=== PATIENT | female | born 1935 | race Caucasian/White ===

== ENCOUNTER 2020-05-03 00:35 | Observation (INO) ==
[2020-05-03] MEDS ORDERED: methylPREDNISolone 125 MG/2 ML VIAL ONE (00:51)
[2020-05-03] MEDS ORDERED: methylPREDNISolone 125 MG/2 ML VIAL IVP ONE (00:54)
[2020-05-03] MEDS ORDERED: Ipratropium/Albuterol Neb 3 ML IH ONE (00:54)
[2020-05-03] MEDS ORDERED: Albuterol 2.5 MG/3 ML NEBULIZER IH ONE (00:54)
[2020-05-03] MEDS ORDERED: Morphine Sulfate 2 MG/ML SYRINGE IVP ONE (00:56)
[2020-05-03 00:59] LABS: Basophils # 0.1 K/mcL (0.0-0.2); Basophils % 0.4 %; Eosinophils # 0.1 K/mcL (0.0-0.6); Eosinophils % 1.1 %; Hematocrit 37.5 % (35.3-44.9); Hemoglobin 11.5 g/dL (11.5-15.4); Immature Granulocytes % 0.6 % (0-4); Lymphocytes # 2.1 K/mcL (0.6-4.6); Lymphocytes % 17.5 %; Mean Corpuscular HGB Conc 30.7 g/dL (31.6-35.5); Mean Corpuscular Hemoglobin 27.8 pg (28.0-33.3); Mean Corpuscular Volume 90.6 fL (83.0-100.0); Mean Platelet Volume 10.5 fL (9.4-12.4); Monocytes # 0.8 K/mcL (0.0-1.3); Monocytes % 6.6 %; Neutrophils # 8.6 K/mcL (1.6-8.9); Platelet Count 262 K/mcL (140-400); Red Blood Count 4.14 M/mcL (3.82-4.97); Red Cell Distribution Width 17.1 % (11.5-14.5); Segmented Neutrophils % 73.8 %; White Blood Count 11.7 K/mcL (4.3-11.1)
[2020-05-03 01:02] LABS: INR 1.2; Prothrombin Time 13.7 Seconds (9.4-12.1)
[2020-05-03 01:03] LABS: ABG Base Excess -3 mEq/L (-2 to 3); ABG HCO3 24 mEq/L (21-27); ABG Oxygen Saturation 96 % (95-98); ABG PCO2 52 mmHg (35-45); ABG PH 7.28 pH Units (7.32-7.45); ABG PO2 91 mmHg (85-104); ABG TCO2 26 mEq/L (20-26)
[2020-05-03 01:13] LABS: BUN/Creatinine Ratio 25 (6-26); Blood Urea Nitrogen 22 mg/dL (8-23); Calcium 9.4 mg/dL (8.6-10.3); Carbon Dioxide 26 mEq/L (23-29); Chloride 99 mEq/L (98-107); Glucose 293 mg/dL (70-105); Osmolality,Calculated 300 (280-300); Potassium 4.1 mEq/L (3.5-5.1); Sodium 138 mEq/L (136-145); Troponin I < 0.03 ng/mL (< 0.04); eGFR For African Americans > 60 (> 60); eGFR For Non-African Americans > 60 (> 60)
[2020-05-03 01:28] LABS: VBG HCO3 29 mEq/L (21-27); VBG PCO2 59 mmHg (41-51); VBG PO2 36 mmHg (25-50)
[2020-05-03] MEDS ORDERED: Azithromycin 500 MG in 0.9 % Sodium Chloride 250 ML IVPB ONE (02:37)
[2020-05-03] MEDS ORDERED: Furosemide 40 MG/4 ML VIAL IVP ONE (02:41)
[2020-05-03] MEDS ORDERED: Naloxone 0.4 MG/ML INJ IVP PRN (02:57)
[2020-05-03 05:01] LABS: Bilirubin,Urine Negative (Negative); Blood,Urine Negative (Negative); Clarity,Urine Slightly Cloudy (Clear); Color,Urine Yellow (Yellow); Glucose,Urine (UA) Normal (Normal); Ketones,Urine Negative (Negative); Leukocyte Esterase,Urine Negative (Negative); Nitrite,Urine Negative (Negative); Protein,Urine 100 mg/dL (Neg-Trace); Specific Gravity,Urine 1.025 (1.010-1.025); Urobilinogen,Urine Normal (Normal)
[2020-05-03 05:21] LABS: Hyaline Casts,Urine Many per lpf (None Seen); Mucus,Urine Many per lpf (None-Few)
[2020-05-03 05:23] LABS: Bacteria,Urine Moderate per hpf (None-Few); RBC,Urine 0-3 per hpf (0-3); Squamous Epithelial Cell,Urine Moderate per hpf (None-Few)
[2020-05-03 06:19] LABS: Adenovirus Not Detected (Not Detect); Bordetella Pertussis Not Detected (Not Detect); Chlamydophila pneumoniae Not Detected (Not Detect); Coronavirus 229E Not Detected (Not Detect); Coronavirus HKU1 Not Detected (Not Detect); Coronavirus NL63 Not Detected (Not Detect); Coronavirus OC43 Not Detected (Not Detect); Human Metapneumovirus Not Detected (Not Detect); Human Rhinovirus/Enterovirus Not Detected (Not Detect); Influenza A Subtype 2009 H1 Not Detected (Not Detect); Influenza B Not Detected (Not Detect); Mycoplasma pneumoniae Not Detected (Not Detect); Parainfluenza Virus 1 Not Detected (Not Detect); Parainfluenza Virus 2 Not Detected (Not Detect); Parainfluenza Virus 3 Not Detected (Not Detect); Parainfluenza Virus 4 Not Detected (Not Detect); Respiratory Syncytial Virus Not Detected (Not Detect); SARS-CoV-2 Not Detected (Not Detect)
[2020-05-03] MEDS ORDERED: Furosemide 20 MG/2 ML VIAL IVP SCH ×2 (09:00→17:00)
[2020-05-03] MEDS ORDERED: Isovue-370 500 ML BOTTLE IVP ONE ×2 (09:07→09:23)
[2020-05-03] MEDS ORDERED: Dextrose Gel 15 GM/37.5 ML TUBE PO PRN ×2 (09:25)
[2020-05-03] MEDS ORDERED: D5% in Water 1,000 ML IVC PRN (09:25)
[2020-05-03] MEDS ORDERED: *HR* Dextrose 50 % in Water (Vial) 50 ML VIAL IVP PRN (09:25)
[2020-05-03 11:44] LABS: ABG Base Excess 6 mEq/L (-2 to 3); ABG HCO3 28 mEq/L (21-27); ABG Oxygen Saturation 98 % (95-98); ABG PCO2 33 mmHg (35-45); ABG PH 7.55 pH Units (7.32-7.45); ABG PO2 86 mmHg (85-104); ABG TCO2 29 mEq/L (20-26)
[2020-05-03] MEDS ORDERED: cefTRIAXone 1,000 MG in Water for inj. (sterile) 10 ML IVP SCH (12:00)
[2020-05-03] MEDS: Insulin LISPRO 300 UNITS/3 ML VIAL SQ SCH ×2 (12:11→17:25)
[2020-05-03] MEDS ORDERED: *HR* LORazepam 2 MG/ML VIAL IVP ONE ×2 (13:07→15:00)
[2020-05-03] MEDS ORDERED: *HR* Enoxaparin 40 MG/0.4 ML SYRINGE SQ SCH (16:18)
[2020-05-03] MEDS: Ipratropium/Albuterol Neb 3 ML IH SCH ×2 (17:34→20:26)
[2020-05-03 20:10] LABS: ABG Base Excess 5 mEq/L (-2 to 3); ABG HCO3 30 mEq/L (21-27); ABG Oxygen Saturation 96 % (95-98); ABG PCO2 44 mmHg (35-45); ABG PH 7.44 pH Units (7.32-7.45); ABG PO2 82 mmHg (85-104); ABG TCO2 31 mEq/L (20-26)
[2020-05-03] MEDS ORDERED: Metoprolol XL (24 HR) Succ 25 MG TAB.ER.24H PO SCH (21:00)
[2020-05-03] MEDS ORDERED: Gabapentin 300 MG CAPSULE PO SCH (21:00)
[2020-05-03] MEDS ORDERED: Budesonide/Formoterol 160/4.5 1 PUFF INH IH SCH (22:00)
[2020-05-04] MEDS: Ipratropium/Albuterol Neb 3 ML IH SCH ×2 (00:22→03:24)
[2020-05-04 02:40] VITALS: BP 121/81
[2020-05-04 03:45] LABS: Basophils % 0.2 %; Eosinophils % 0.3 %; Hematocrit 34.2 % (35.3-44.9); Hemoglobin 10.6 g/dL (11.5-15.4); Immature Granulocytes % 0.4 % (0-4); Lymphocytes # 0.7 K/mcL (0.6-4.6); Lymphocytes % 5.1 %; Mean Corpuscular Hemoglobin 27.7 pg (28.0-33.3); Mean Corpuscular Volume 89.3 fL (83.0-100.0); Mean Platelet Volume 10.5 fL (9.4-12.4); Monocytes # 0.9 K/mcL (0.0-1.3); Monocytes % 6.7 %; Platelet Count 248 K/mcL (140-400); Red Blood Count 3.83 M/mcL (3.82-4.97); Red Cell Distribution Width 16.9 % (11.5-14.5); Segmented Neutrophils % 87.3 %; White Blood Count 13.8 K/mcL (4.3-11.1)
[2020-05-04 03:50] LABS: Neutrophils # 12.1 K/mcL (1.6-8.9)
[2020-05-04 04:09] LABS: Troponin I 0.17 ng/mL (< 0.04)
[2020-05-04] MEDS ORDERED: *HR* Heparin 5,000 UNIT/ML VIAL IVP ONE (04:17)
[2020-05-04] MEDS ORDERED: *HR* Heparin 5,000 UNIT/ML VIAL IVP PRN ×2 (04:17)
[2020-05-04 04:21] LABS: BUN/Creatinine Ratio 40 (6-26); Blood Urea Nitrogen 36 mg/dL (8-23); Calcium 9.2 mg/dL (8.6-10.3); Carbon Dioxide 34 mEq/L (23-29); Chloride 98 mEq/L (98-107); Glucose 151 mg/dL (70-105); Osmolality,Calculated 303 (280-300); Potassium 3.5 mEq/L (3.5-5.1); Sodium 141 mEq/L (136-145); eGFR For African Americans > 60 (> 60); eGFR For Non-African Americans > 60 (> 60)
[2020-05-04] MEDS ORDERED: 0.9 % Sodium Chloride 1,000 ML ONE (04:26)
[2020-05-04] MEDS ORDERED: Heparin 25,000UNIT/250ML 1/2NS 25,000 UNIT/250 ML IV.SOLN IVC SCH (04:30)
[2020-05-04 06:05] LABS: INR 1.3; Prothrombin Time 14.5 Seconds (9.4-12.1)
[2020-05-04 06:08] LABS: Heparin anti-factor XA UFH 0.79 IU/mL (0.30-0.70)
[2020-05-04] MEDS ORDERED: DilTIAZem CD (24hr) 120 MG CAP.ER.24H PO SCH (09:00)
[2020-05-04] MEDS ORDERED: NON-FORMULARY MEDICATION 1 EACH EACH (Pantoprazole Sodium [Protonix] 40 MG) PO SCH (09:00)
== END 2020-05-04 06:04 | disposition short-term general hospital (02) ==
LOC: INPPIK 00:35 → EMEROOPIK 00:35 → INPPIK 08:49
PROVIDERS: ADMIT Family Medicine; ATTEND Family Medicine

== ENCOUNTER 2020-05-18 12:57 | Inpatient (IN) ==
[2020-05-18] MEDS ORDERED: Ipratropium/Albuterol Neb 3 ML IH PRN (16:45)
[2020-05-18] MEDS: Furosemide 40 MG TABLET PO SCH (20:23)
[2020-05-18] MEDS: *HR* Warfarin 2.5 MG TABLET PO SCH (20:24)
[2020-05-18] MEDS: Gabapentin 300 MG CAPSULE PO SCH (20:25)
[2020-05-18] MEDS: *HR* Metformin 500 MG TABLET PO SCH (20:25)
[2020-05-18] MEDS: Metoprolol XL (24 HR) Succ 25 MG TAB.ER.24H PO SCH (20:25)
[2020-05-19] MEDS: Budesonide/Formoterol 160/4.5 1 PUFF INH IH SCH ×3 (00:57→20:21)
[2020-05-19 08:40] LABS: Basophils % 0.1 %; Eosinophils # 0.1 K/mcL (0.0-0.6); Eosinophils % 1.7 %; Hematocrit 27.7 % (35.3-44.9); Hemoglobin 8.2 g/dL (11.5-15.4); Immature Granulocytes % 0.3 % (0-4); Lymphocytes # 0.6 K/mcL (0.6-4.6); Lymphocytes % 8.8 %; Mean Corpuscular HGB Conc 29.6 g/dL (31.6-35.5); Mean Corpuscular Hemoglobin 26.5 pg (28.0-33.3); Mean Corpuscular Volume 89.6 fL (83.0-100.0); Mean Platelet Volume 10.7 fL (9.4-12.4); Monocytes # 0.5 K/mcL (0.0-1.3); Monocytes % 6.4 %; Neutrophils # 5.8 K/mcL (1.6-8.9); Platelet Count 188 K/mcL (140-400); Red Blood Count 3.09 M/mcL (3.82-4.97); Red Cell Distribution Width 17.5 % (11.5-14.5); Segmented Neutrophils % 82.7 %; White Blood Count 7.1 K/mcL (4.3-11.1)
[2020-05-19] MEDS ORDERED: NON-FORMULARY MEDICATION 1 EACH EACH (Pantoprazole Sodium [Protonix] 40 MG) PO SCH (09:00)
[2020-05-19] MEDS ORDERED: levoFLOXacin 750 MG TABLET PO SCH (09:00)
[2020-05-19 09:03] LABS: INR 1.3
[2020-05-19] MEDS: *HR* Metformin 500 MG TABLET PO SCH ×2 (09:09→17:12)
[2020-05-19] MEDS: Furosemide 40 MG TABLET PO SCH ×2 (09:09→17:12)
[2020-05-19] MEDS: DilTIAZem CD (24hr) 120 MG CAP.ER.24H PO SCH (09:09)
[2020-05-19] MEDS: Gabapentin 300 MG CAPSULE PO SCH ×3 (09:09→21:29)
[2020-05-19] MEDS: Aspirin 81 MG TAB.CHEW PO SCH (09:09)
[2020-05-19] MEDS: Metoprolol XL (24 HR) Succ 25 MG TAB.ER.24H PO SCH ×2 (09:10→21:28)
[2020-05-19] MEDS ORDERED: Bisacodyl 10 MG RECTAL SUPPOSITORY RC PRN (09:26)
[2020-05-19 09:43] LABS: BUN/Creatinine Ratio 37 (6-26); Blood Urea Nitrogen 23 mg/dL (8-23); Calcium 8.1 mg/dL (8.6-10.3); Carbon Dioxide 42 mEq/L (23-29); Chloride 102 mEq/L (98-107); Glucose 100 mg/dL (70-105); Osmolality,Calculated 294 (280-300); Potassium 3.2 mEq/L (3.5-5.1); Sodium 140 mEq/L (136-145); eGFR For African Americans > 60 (> 60); eGFR For Non-African Americans > 60 (> 60)
[2020-05-19] MEDS: levoFLOXacin 500 MG TABLET PO SCH (10:01)
[2020-05-19] MEDS: Acetaminophen 325 MG TABLET PO PRN ×2 (10:02→21:29)
[2020-05-19] MEDS: Ipratropium/Albuterol Neb 3 ML IH SCH ×5 (10:28→23:10)
[2020-05-19] MEDS: *HR* Warfarin 2.5 MG TABLET PO SCH (17:12)
[2020-05-20] MEDS: Ipratropium/Albuterol Neb 3 ML IH SCH ×5 (04:06→21:19)
[2020-05-20] MEDS: Metoprolol XL (24 HR) Succ 25 MG TAB.ER.24H PO SCH ×2 (07:44→20:06)
[2020-05-20] MEDS: *HR* Metformin 500 MG TABLET PO SCH ×2 (07:45→17:10)
[2020-05-20] MEDS: DilTIAZem CD (24hr) 120 MG CAP.ER.24H PO SCH (07:45)
[2020-05-20] MEDS: Acetaminophen 325 MG TABLET PO PRN ×2 (07:45→17:09)
[2020-05-20] MEDS: Aspirin 81 MG TAB.CHEW PO SCH (07:45)
[2020-05-20] MEDS: Furosemide 40 MG TABLET PO SCH ×2 (07:45→17:10)
[2020-05-20] MEDS: Gabapentin 300 MG CAPSULE PO SCH ×3 (07:45→20:06)
[2020-05-20] MEDS: Budesonide/Formoterol 160/4.5 1 PUFF INH IH SCH ×2 (07:56→21:19)
[2020-05-20] MEDS: *HR* Warfarin 2.5 MG TABLET PO SCH (17:10)
[2020-05-20] MEDS ORDERED: Warfarin perPT PO PRN (18:25)
[2020-05-20] MEDS ORDERED: Melatonin 3 MG TABLET PO ONE (20:45)
[2020-05-21] MEDS: Ipratropium/Albuterol Neb 3 ML IH SCH ×6 (00:43→19:45)
[2020-05-21 06:38] LABS: INR 1.5
[2020-05-21] MEDS: Budesonide/Formoterol 160/4.5 1 PUFF INH IH SCH ×2 (07:37→19:46)
[2020-05-21] MEDS: Furosemide 40 MG TABLET PO SCH ×2 (09:18→17:14)
[2020-05-21] MEDS: *HR* Metformin 500 MG TABLET PO SCH ×2 (09:18→17:13)
[2020-05-21] MEDS: Metoprolol XL (24 HR) Succ 25 MG TAB.ER.24H PO SCH ×2 (09:18→22:17)
[2020-05-21] MEDS: levoFLOXacin 500 MG TABLET PO SCH (09:18)
[2020-05-21] MEDS: Gabapentin 300 MG CAPSULE PO SCH ×3 (09:18→22:16)
[2020-05-21] MEDS: Acetaminophen 325 MG TABLET PO PRN (09:19)
[2020-05-21] MEDS: Aspirin 81 MG TAB.CHEW PO SCH (09:21)
[2020-05-21] MEDS: *HR* LORazepam 0.5 MG TABLET PO PRN (14:42)
[2020-05-21] MEDS ORDERED: *HR* Warfarin 3 MG TABLET PO ONE (18:00)
[2020-05-22] MEDS: Ipratropium/Albuterol Neb 3 ML IH SCH ×6 (00:46→21:00)
[2020-05-22] MEDS: *HR* LORazepam 0.5 MG TABLET PO PRN ×2 (02:45→14:58)
[2020-05-22] MEDS: Budesonide/Formoterol 160/4.5 1 PUFF INH IH SCH ×2 (07:17→21:03)
[2020-05-22 08:04] LABS: INR 1.7; Prothrombin Time 19.4 Seconds (9.4-12.1)
[2020-05-22] MEDS: levoFLOXacin 500 MG TABLET PO SCH (09:01)
[2020-05-22] MEDS: *HR* Metformin 500 MG TABLET PO SCH ×2 (09:02→18:10)
[2020-05-22] MEDS: Gabapentin 300 MG CAPSULE PO SCH ×3 (09:02→21:43)
[2020-05-22] MEDS: Metoprolol XL (24 HR) Succ 25 MG TAB.ER.24H PO SCH ×2 (09:02→21:44)
[2020-05-22] MEDS: Aspirin 81 MG TAB.CHEW PO SCH (09:02)
[2020-05-22] MEDS: Furosemide 40 MG TABLET PO SCH ×2 (09:02→18:10)
[2020-05-22] MEDS ORDERED: *HR* Warfarin 3 MG TABLET PO ONE (18:00)
[2020-05-23] MEDS: Ipratropium/Albuterol Neb 3 ML IH SCH ×6 (00:49→20:33)
[2020-05-23] MEDS: Budesonide/Formoterol 160/4.5 1 PUFF INH IH SCH ×2 (07:09→22:29)
[2020-05-23 07:12] LABS: Prothrombin Time 23.1 Seconds (9.4-12.1)
[2020-05-23] MEDS: levoFLOXacin 500 MG TABLET PO SCH (08:56)
[2020-05-23] MEDS: Furosemide 40 MG TABLET PO SCH ×2 (08:56→16:10)
[2020-05-23] MEDS: *HR* Metformin 500 MG TABLET PO SCH ×2 (08:56→16:09)
[2020-05-23] MEDS: Metoprolol XL (24 HR) Succ 25 MG TAB.ER.24H PO SCH ×2 (08:56→20:50)
[2020-05-23] MEDS: Gabapentin 300 MG CAPSULE PO SCH ×3 (08:56→20:52)
[2020-05-23] MEDS: *HR* LORazepam 0.5 MG TABLET PO PRN (08:56)
[2020-05-23] MEDS: Aspirin 81 MG TAB.CHEW PO SCH (08:57)
[2020-05-23 11:47] LABS: BUN/Creatinine Ratio 34 (6-26); Blood Urea Nitrogen 26 mg/dL (8-23); Calcium 8.7 mg/dL (8.6-10.3); Carbon Dioxide 39 mEq/L (23-29); Chloride 96 mEq/L (98-107); Glucose 121 mg/dL (70-105); Osmolality,Calculated 300 (280-300); Potassium 3.4 mEq/L (3.5-5.1); Sodium 142 mEq/L (136-145); eGFR For African Americans > 60 (> 60); eGFR For Non-African Americans > 60 (> 60)
[2020-05-23] MEDS ORDERED: Furosemide 40 MG TABLET PO ONE (15:41)
[2020-05-23] MEDS ORDERED: *HR* LORazepam 0.5 MG TABLET PO ONE (15:41)
[2020-05-23] MEDS ORDERED: *HR* Warfarin 2.5 MG TABLET PO ONE (18:00)
[2020-05-24] MEDS: *HR* LORazepam 0.5 MG TABLET PO PRN ×2 (00:26→10:23)
[2020-05-24] MEDS: Ipratropium/Albuterol Neb 3 ML IH SCH ×7 (01:11→23:19)
[2020-05-24 08:32] LABS: INR 2.5; Prothrombin Time 27.9 Seconds (9.4-12.1)
[2020-05-24] MEDS: Budesonide/Formoterol 160/4.5 1 PUFF INH IH SCH ×2 (09:29→20:55)
[2020-05-24] MEDS: Acetaminophen 325 MG TABLET PO PRN ×2 (10:23→17:23)
[2020-05-24] MEDS: Aspirin 81 MG TAB.CHEW PO SCH (10:23)
[2020-05-24] MEDS: *HR* Metformin 500 MG TABLET PO SCH ×2 (10:23→17:22)
[2020-05-24] MEDS: Furosemide 40 MG TABLET PO SCH ×2 (10:23→17:23)
[2020-05-24] MEDS: Gabapentin 300 MG CAPSULE PO SCH ×3 (10:23→20:08)
[2020-05-24] MEDS: Metoprolol XL (24 HR) Succ 25 MG TAB.ER.24H PO SCH ×2 (10:24→10:43)
[2020-05-24] MEDS ORDERED: *HR* Warfarin 1 MG TABLET PO ONE (18:00)
[2020-05-25] MEDS: *HR* LORazepam 0.5 MG TABLET PO PRN ×2 (03:16→17:41)
[2020-05-25] MEDS: Ipratropium/Albuterol Neb 3 ML IH SCH ×5 (04:33→20:55)
[2020-05-25 06:21] LABS: INR 2.8; Prothrombin Time 31.7 Seconds (9.4-12.1)
[2020-05-25] MEDS: Gabapentin 300 MG CAPSULE PO SCH ×3 (07:58→22:00)
[2020-05-25] MEDS: Acetaminophen 325 MG TABLET PO PRN (07:58)
[2020-05-25] MEDS: Aspirin 81 MG TAB.CHEW PO SCH (07:58)
[2020-05-25] MEDS: Metoprolol XL (24 HR) Succ 25 MG TAB.ER.24H PO SCH (07:59)
[2020-05-25] MEDS: Furosemide 40 MG TABLET PO SCH ×2 (07:59→17:41)
[2020-05-25] MEDS: *HR* Metformin 500 MG TABLET PO SCH (07:59)
[2020-05-25] MEDS: Budesonide/Formoterol 160/4.5 1 PUFF INH IH SCH ×2 (08:18→20:56)
[2020-05-25] MEDS ORDERED: Metoprolol XL (24 HR) Succ 25 MG TAB.ER.24H PO SCH (09:00)
[2020-05-25 09:42] LABS: Hematocrit 27.7 % (35.3-44.9); Hemoglobin 8.5 g/dL (11.5-15.4); Mean Corpuscular HGB Conc 30.7 g/dL (31.6-35.5); Mean Corpuscular Hemoglobin 27.3 pg (28.0-33.3); Mean Corpuscular Volume 89.1 fL (83.0-100.0); Mean Platelet Volume 10.7 fL (9.4-12.4); Platelet Count 138 K/mcL (140-400); Red Blood Count 3.11 M/mcL (3.82-4.97); Red Cell Distribution Width 19.4 % (11.5-14.5); White Blood Count 6.7 K/mcL (4.3-11.1)
[2020-05-25 10:01] LABS: Calcium 7.8 mg/dL (8.6-10.3); Potassium 3.5 mEq/L (3.5-5.1)
[2020-05-25 10:23] LABS: Troponin I 0.06 ng/mL (< 0.04)
[2020-05-25] MEDS: Sennosides/Docusate Sodium TABLET PO SCH ×2 (11:07→22:00)
[2020-05-25] MEDS ORDERED: *HR* Dextrose 50 % in Water (Vial) 50 ML VIAL IVP PRN (16:27)
[2020-05-25] MEDS ORDERED: Dextrose Gel 15 GM/37.5 ML TUBE PO PRN ×2 (16:27)
[2020-05-25] MEDS ORDERED: D5% in Water 1,000 ML IVC PRN (16:27)
[2020-05-25] MEDS: Insulin LISPRO 300 UNITS/3 ML VIAL SQ SCH (17:35)
[2020-05-25] MEDS ORDERED: *HR* Warfarin 1 MG TABLET PO ONE (18:00)
[2020-05-26] MEDS: Ipratropium/Albuterol Neb 3 ML IH SCH ×3 (01:00→07:34)
[2020-05-26] MEDS: Budesonide/Formoterol 160/4.5 1 PUFF INH IH SCH ×2 (07:34→21:38)
[2020-05-26 07:49] LABS: INR 2.7; Prothrombin Time 30.1 Seconds (9.4-12.1)
[2020-05-26] MEDS: Insulin LISPRO 300 UNITS/3 ML VIAL SQ SCH ×3 (08:17→16:30)
[2020-05-26] MEDS ORDERED: Ipratropium/Albuterol Neb 3 ML IH PRN (08:21)
[2020-05-26] MEDS: Acetaminophen 325 MG TABLET PO PRN (08:28)
[2020-05-26] MEDS: *HR* LORazepam 0.5 MG TABLET PO PRN (08:28)
[2020-05-26] MEDS: Furosemide 40 MG TABLET PO SCH ×2 (08:28→16:29)
[2020-05-26] MEDS: Gabapentin 300 MG CAPSULE PO SCH ×3 (08:28→21:28)
[2020-05-26] MEDS: Sennosides/Docusate Sodium TABLET PO SCH ×2 (08:28→21:28)
[2020-05-26] MEDS: Aspirin 81 MG TAB.CHEW PO SCH (08:29)
[2020-05-26] MEDS: Metoprolol XL (24 HR) Succ 25 MG TAB.ER.24H PO SCH (08:29)
[2020-05-26] MEDS ORDERED: *HR* Warfarin 1 MG TABLET PO ONE (18:00)
[2020-05-27 07:09] LABS: INR 1.8; Prothrombin Time 20.1 Seconds (9.4-12.1)
[2020-05-27] MEDS: Insulin LISPRO 300 UNITS/3 ML VIAL SQ SCH ×2 (09:13→13:26)
[2020-05-27] MEDS: Gabapentin 300 MG CAPSULE PO SCH (09:22)
[2020-05-27] MEDS: Furosemide 40 MG TABLET PO SCH (09:22)
[2020-05-27] MEDS: Sennosides/Docusate Sodium TABLET PO SCH (09:23)
[2020-05-27] MEDS: Metoprolol XL (24 HR) Succ 25 MG TAB.ER.24H PO SCH (09:23)
[2020-05-27] MEDS: *HR* LORazepam 0.5 MG TABLET PO PRN (09:23)
[2020-05-27] MEDS: Aspirin 81 MG TAB.CHEW PO SCH (09:23)
[2020-05-27] MEDS: Budesonide/Formoterol 160/4.5 1 PUFF INH IH SCH (09:37)
[2020-05-27 12:13] LABS: ABG Base Excess 13 mEq/L (-2 to 3); ABG HCO3 40 mEq/L (21-27); ABG Oxygen Saturation 96 % (95-98); ABG PCO2 63 mmHg (35-45); ABG PH 7.41 pH Units (7.32-7.45); ABG PO2 83 mmHg (85-104); ABG TCO2 42 mEq/L (20-26); Blood Gas Modality BiLevel
[2020-05-27 12:20] LABS: Basophils % 0.4 %; Eosinophils % 0.9 %; Hematocrit 28.7 % (35.3-44.9); Hemoglobin 8.7 g/dL (11.5-15.4); Immature Granulocytes % 0.2 % (0-4); Lymphocytes # 0.3 K/mcL (0.6-4.6); Lymphocytes % 7.3 %; Mean Corpuscular HGB Conc 30.3 g/dL (31.6-35.5); Mean Corpuscular Hemoglobin 26.8 pg (28.0-33.3); Mean Corpuscular Volume 88.3 fL (83.0-100.0); Mean Platelet Volume 11.2 fL (9.4-12.4); Monocytes # 0.4 K/mcL (0.0-1.3); Monocytes % 9.4 %; Neutrophils # 3.7 K/mcL (1.6-8.9); Platelet Count 119 K/mcL (140-400); Red Blood Count 3.25 M/mcL (3.82-4.97); Red Cell Distribution Width 19.1 % (11.5-14.5); Segmented Neutrophils % 81.8 %; White Blood Count 4.5 K/mcL (4.3-11.1)
[2020-05-27 12:38] LABS: Alanine Aminotransferase 33 Units/L (7-52); Albumin 3.4 g/dL (3.5-5.7); Albumin/Globulin Ratio 1.3 (1.1-2.2); Alkaline Phosphatase 143 Units/L (34-104); Aspartate Amino Transferase 38 Units/L (13-39); BUN/Creatinine Ratio 46 (6-26); Bilirubin,Total 0.9 mg/dL (0.3-1.0); Blood Urea Nitrogen 32 mg/dL (8-23); Calcium 8.1 mg/dL (8.6-10.3); Carbon Dioxide 36 mEq/L (23-29); Chloride 95 mEq/L (98-107); Globulin 2.6 g/dL (2.4-3.5); Glucose 182 mg/dL (70-105); Osmolality,Calculated 304 (280-300); Potassium 3.8 mEq/L (3.5-5.1); Sodium 141 mEq/L (136-145); eGFR For African Americans > 60 (> 60); eGFR For Non-African Americans > 60 (> 60)
[2020-05-27] MEDS ORDERED: Piperacillin/Tazobactam 3.375 GM in 0.9 % Sodium Chloride Mini Bag 100 ML IVPB SCH (13:00)
[2020-05-27] MEDS ORDERED: Vancomycin 1,250 MG/262.5 ML IV.SOLN IVPB SCH (13:00)
[2020-05-27 15:55] LABS: ABG Base Excess 9 mEq/L (-2 to 3); ABG HCO3 35 mEq/L (21-27); ABG Oxygen Saturation 86 % (95-98); ABG PCO2 54 mmHg (35-45); ABG PH 7.42 pH Units (7.32-7.45); ABG PO2 52 mmHg (85-104); ABG TCO2 37 mEq/L (20-26); Blood Gas Modality ASSIST CONTROL; Blood Gas VT 500 cc
[2020-05-27] MEDS ORDERED: Midazolam HCl 50 MG/100 ML IV.SOLN IVC SCH (16:15)
[2020-05-27 17:24] VITALS: BP 151/67
[2020-05-27] MEDS ORDERED: *HR* Etomidate 20 MG/10 ML AMPUL IVP ONE (17:48)
[2020-05-27] MEDS ORDERED: *HR* Rocuronium Bromide 50 MG/5 ML VIAL IVP ONE (17:48)
[2020-05-27] MEDS ORDERED: *HR* Warfarin 3 MG TABLET PO ONE (18:00)
== END 2020-05-27 15:27 | disposition short-term general hospital (02) | DRG 871 ==
LOC: INPPIK 18:48
PROVIDERS: ADMIT Family Medicine; ATTEND Family Medicine